=== PATIENT | female | born 1940 | race Caucasian/White ===

== ENCOUNTER 2016-11-16 06:26 | Day surgery (SDC) | payer MEDICARE, OTHER ==
[2016-11-14 16:11] LABS: BASOPHILS 0.9 % (0-2); HEMOGLOBIN 13.6 g/dL (12-16); IMMATURE GRANULOCYTES 0.1 % (0-5); LYMPHOCYTES 28.2 % (15-50); MCH 32.8 pg (26.0-34.0); MCHC 33.2 g/dL (31.0-37.0); MCV 98.8 fL (80.0-100.0); MEAN PLATELET VOLUME 9.8 fL (7.4-10.4); NEUTROPHILS 58.8 % (40-80); PLATELET COUNT 222 10x3/uL (130-400); RBC 4.15 10x6/uL (4.00-5.40)
[2016-11-14 16:23] LABS: APTT 24.8 SECONDS (22.8-39.4); INR 0.91 (0.85-1.17); PROTIME 12.1 SECONDS (11.6-15.0)
[2016-11-14 16:25] LABS: ANION GAP 9.8 mmol/L (8-16); CALCIUM 9.2 mg/dL (8.5-10.1); CARBON DIOXIDE 33.4 mmol/L (21.0-32.0); CREATININE - SERUM 0.9 mg/dL (0.6-1.3); POTASSIUM - SERUM 4.2 mmol/L (3.5-5.1)
[~2016-11-16] VITALS: Ht 160 cm; Wt 60.3 kg
[~2016-11-16 06:26] MED LIST: ASPIRIN EC81 M1 PO; BIOTIN5 MG PO; BYSTOLIC2.5 MG PO; LIPITOR10 MG PO; MULTIPLE VITAMI1 TA1 PO; POTASSIUM99 M1 PO; VITAMIN B COMPL1 TAB PO; VITAMIN D31000 UNI2 PO; VITAMIN E100 UNIT PO; ZANTAC300 MG PO
[2016-11-16 07:10] VITALS: BP 149/74; Ht 160 cm; Wt 60.3 kg
--- NOTE | 2016-11-16 15:42 | NUR ---
1310--PT ABLE TO VOID, IV DC'D. AYSHA PLEITEZ 1324--DISCHARGE INSTRUCTIONS GIVEN, PT VERBALIZES UNDERSTANDING. PT OFF UNIT VIA WC. AYSHA PLEITEZ
== END 2016-11-16 13:25 | disposition home or self-care (01) ==
LOC: D.OPS 06:26 → D.PAN 09:45 → D.OPS 09:45
PROVIDERS: Anesthesiology; Obstetrics & Gynecology
DX: N95.0 Postmenopausal bleeding (principal); N88.2 Stricture and stenosis of cervix uteri; Z01.812 Encounter for preprocedural laboratory examination